=== PATIENT | female | born 1950 | race Caucasian/White ===

== ENCOUNTER 2020-11-18 16:18 | Observation (INO) ==
[2020-11-18] MEDS ORDERED: Ipratropium/Albuterol Neb 3 ML IH ONE (16:52)
[2020-11-18] MEDS ORDERED: methylPREDNISolone 125 MG/2 ML VIAL IVP ONE (16:52)
[2020-11-18 17:17] LABS: ABG Base Excess 3 mEq/L (-2 to 3); ABG HCO3 27 mEq/L (21-27); ABG Oxygen Saturation 97 % (95-98); ABG PCO2 39 mmHg (35-45); ABG PH 7.45 pH Units (7.32-7.45); ABG PO2 88 mmHg (85-104); ABG TCO2 28 mEq/L (20-26)
[2020-11-18 17:26] LABS: Basophils % 0.2 %; Eosinophils # 0.2 K/mcL (0.0-0.6); Eosinophils % 1.4 %; Hematocrit 37.7 % (35.3-44.9); Hemoglobin 12.2 g/dL (11.5-15.4); Immature Granulocytes % 0.4 % (0-4); Lymphocytes # 0.6 K/mcL (0.6-4.6); Lymphocytes % 3.7 %; Mean Corpuscular HGB Conc 32.4 g/dL (31.6-35.5); Mean Corpuscular Hemoglobin 28.5 pg (28.0-33.3); Mean Corpuscular Volume 88.1 fL (83.0-100.0); Monocytes # 1.2 K/mcL (0.0-1.3); Monocytes % 6.9 %; Neutrophils # 14.8 K/mcL (1.6-8.9); Platelet Count 175 K/mcL (140-400); Red Blood Count 4.28 M/mcL (3.82-4.97); Red Cell Distribution Width 14.6 % (11.5-14.5); Segmented Neutrophils % 87.4 %; White Blood Count 16.9 K/mcL (4.3-11.1)
[2020-11-18 17:53] LABS: Calcium 9.6 mg/dL (8.6-10.3); Potassium 3.7 mEq/L (3.5-5.1); Troponin I 0.04 ng/mL (< 0.04)
[2020-11-18] MEDS ORDERED: cefTRIAXone 1,000 MG in Water for inj. (sterile) 10 ML IVP ONE (18:00)
[2020-11-18] MEDS ORDERED: Azithromycin 250 MG TABLET PO ONE (18:00)
[2020-11-18 18:30] LABS: Bilirubin,Urine Negative (Negative); Blood,Urine Negative (Negative); Clarity,Urine Clear (Clear); Color,Urine Light-Yellow (Yellow); Glucose,Urine (UA) Normal (Normal); Ketones,Urine Negative (Negative); Leukocyte Esterase,Urine Negative (Negative); Nitrite,Urine Negative (Negative); Protein,Urine 100 mg/dL (Neg-Trace); RBC,Urine 0-3 per hpf (0-3); Specific Gravity,Urine 1.014 (1.010-1.025); Squamous Epithelial Cell,Urine Moderate per hpf (None-Few); Urobilinogen,Urine Normal (Normal); WBC,Urine 0-3 per hpf (0-3)
[2020-11-18] MEDS ORDERED: Acetaminophen 325 MG TABLET PO PRN (21:02)
[2020-11-18] MEDS ORDERED: Naloxone 0.4 MG/ML INJ IVP PRN ×2 (21:02→21:16)
[2020-11-18] MEDS ORDERED: Ondansetron ODT 4 MG TAB.RAPDIS SL PRN (21:02)
[2020-11-18] MEDS ORDERED: Dextrose Gel 15 GM/37.5 ML TUBE PO PRN ×2 (21:14)
[2020-11-18] MEDS ORDERED: *HR* Dextrose 50 % in Water (Vial) 50 ML VIAL IVP PRN (21:14)
[2020-11-18] MEDS ORDERED: D5% in Water 1,000 ML IVC PRN (21:14)
[2020-11-18] MEDS ORDERED: Insulin DETEMIR 100 UNIT/ML X5UNITS SUBQ SCH (21:15)
[2020-11-18] MEDS ORDERED: 0.9 % Sodium Chloride 1,000 ML IVC SCH (21:15)
[2020-11-18] MEDS ORDERED: Perflutren Lipid Microsphere 1.3 ML in 0.9 % Sodium Chloride 8.7 ML IVP PRN (21:16)
[2020-11-18] MEDS: Insulin LISPRO 300 UNITS/3 ML VIAL SUBQ SCH (21:55)
[2020-11-18] MEDS: Budesonide/Formoterol 160/4.5 1 PUFF INH IH SCH (22:29)
[2020-11-18] MEDS: Ipratropium/Albuterol Neb 3 ML IH SCH (22:29)
[2020-11-18] MEDS ORDERED: PrednisoLONE Oral Soln 15 MG/5 ML UDC PO SCH (22:30)
[2020-11-18] MEDS: predniSONE 20 MG TABLET PO SCH (22:35)
[2020-11-18 22:51] LABS: INR 4.5; Prothrombin Time 49.8 Seconds (9.4-12.1)
[2020-11-19 03:10] LABS: Basophils % 0.1 %; Hemoglobin 10.8 g/dL (11.5-15.4); Immature Granulocytes % 0.6 % (0-4); Lymphocytes # 0.7 K/mcL (0.6-4.6); Lymphocytes % 3.4 %; Mean Corpuscular HGB Conc 32.7 g/dL (31.6-35.5); Mean Corpuscular Hemoglobin 28.6 pg (28.0-33.3); Mean Corpuscular Volume 87.5 fL (83.0-100.0); Mean Platelet Volume 10.3 fL (9.4-12.4); Monocytes # 0.5 K/mcL (0.0-1.3); Monocytes % 2.5 %; Neutrophils # 18.7 K/mcL (1.6-8.9); Platelet Count 145 K/mcL (140-400); Red Blood Count 3.77 M/mcL (3.82-4.97); Red Cell Distribution Width 14.4 % (11.5-14.5); Segmented Neutrophils % 93.4 %; White Blood Count 20.1 K/mcL (4.3-11.1)
[2020-11-19 03:22] LABS: INR 5.2; Prothrombin Time 57.3 Seconds (9.4-12.1)
[2020-11-19 03:28] LABS: Calcium 8.8 mg/dL (8.6-10.3); Magnesium 1.9 mg/dL (1.6-2.6); Phosphorous 3.9 mg/dL (2.7-4.5); Potassium 3.9 mEq/L (3.5-5.1)
[2020-11-19] MEDS: Ipratropium/Albuterol Neb 3 ML IH SCH ×4 (04:08→21:46)
[2020-11-19] MEDS ORDERED: MethylPREDNISolone 40 MG/ML VIAL IVP SCH (06:00)
[2020-11-19] MEDS ORDERED: hydrALAZINE 25 MG TABLET PO SCH ×2 (09:00→21:00)
[2020-11-19] MEDS ORDERED: *HR* Warfarin 3 MG TABLET PO SCH (09:00)
[2020-11-19 09:14] LABS: Protein/Creatinine Ratio,Urine 4.14 mg/mg (0.00-0.20); Sodium, Urine 122.6 mEq/L
[2020-11-19] MEDS: predniSONE 20 MG TABLET PO SCH (09:31)
[2020-11-19] MEDS: Budesonide/Formoterol 160/4.5 1 PUFF INH IH SCH ×2 (09:33→21:46)
[2020-11-19] MEDS: Insulin LISPRO 300 UNITS/3 ML VIAL SUBQ SCH ×4 (09:45→20:26)
[2020-11-19] MEDS ORDERED: Piperacillin/Tazobactam 3.375 GM in 0.9 % Sodium Chloride Mini Bag 100 ML IVPB SCH ×2 (17:13→20:00)
[2020-11-19] MEDS ORDERED: cloNIDine HCL 0.1 MG TABLET PO ONE (17:20)
[2020-11-19] MEDS ORDERED: cefTRIAXone 2,000 MG in Water for inj. (sterile) 20 ML IVP SCH (18:00)
[2020-11-19] MEDS ORDERED: Azithromycin 500 MG in 0.9 % Sodium Chloride 250 ML IVPB SCH (18:00)
[2020-11-19] MEDS ORDERED: Warfarin perPT PO PRN (18:00)
[2020-11-19] MEDS: carvediloL 25 MG TABLET PO SCH (18:37)
[2020-11-19] MEDS ORDERED: *HR* Phytonadione 5 MG TABLET PO ONE (18:42)
[2020-11-19] MEDS: ALPRAZolam 1 MG TABLET PO SCH (20:25)
[2020-11-19] MEDS ORDERED: Insulin DETEMIR 100 UNIT/ML X5UNITS SUBQ SCH (21:00)
[2020-11-20] MEDS: Ipratropium/Albuterol Neb 3 ML IH SCH ×2 (04:04→10:03)
[2020-11-20 05:08] LABS: Basophils % 0.1 %; Hematocrit 33.6 % (35.3-44.9); Immature Granulocytes % 0.7 % (0-4); Lymphocytes # 0.7 K/mcL (0.6-4.6); Lymphocytes % 5.2 %; Mean Corpuscular HGB Conc 32.7 g/dL (31.6-35.5); Mean Corpuscular Hemoglobin 28.9 pg (28.0-33.3); Mean Corpuscular Volume 88.2 fL (83.0-100.0); Mean Platelet Volume 10.9 fL (9.4-12.4); Monocytes # 0.6 K/mcL (0.0-1.3); Monocytes % 4.5 %; Neutrophils # 12.1 K/mcL (1.6-8.9); Platelet Count 170 K/mcL (140-400); Red Blood Count 3.81 M/mcL (3.82-4.97); Red Cell Distribution Width 14.9 % (11.5-14.5); Segmented Neutrophils % 89.5 %; White Blood Count 13.5 K/mcL (4.3-11.1)
[2020-11-20 05:12] LABS: Estimated Average Glucose 157 mg/dl; Hemoglobin A1C 7.1 %
[2020-11-20 05:13] LABS: INR 3.3; Prothrombin Time 37.3 Seconds (9.4-12.1)
[2020-11-20 05:21] LABS: Potassium 4.2 mEq/L (3.5-5.1)
[2020-11-20 07:35] VITALS: BP 133/70; PULSE 116; TEMP 99.2
[2020-11-20] MEDS ORDERED: Piperacillin/Tazobactam 3.375 GM in 0.9 % Sodium Chloride Mini Bag 100 ML IVPB SCH (08:00)
[2020-11-20] MEDS: predniSONE 20 MG TABLET PO SCH (08:55)
[2020-11-20] MEDS: ALPRAZolam 1 MG TABLET PO SCH (08:56)
[2020-11-20] MEDS: carvediloL 25 MG TABLET PO SCH (08:56)
[2020-11-20] MEDS: Insulin LISPRO 300 UNITS/3 ML VIAL SUBQ SCH (08:58)
[2020-11-20] MEDS ORDERED: cloNIDine HCL 0.1 MG TABLET PO SCH (09:00)
[2020-11-20] MEDS ORDERED: hydrALAZINE 25 MG TABLET PO SCH (09:00)
[2020-11-20] MEDS: Budesonide/Formoterol 160/4.5 1 PUFF INH IH SCH (10:03)
[2020-11-20 10:07] VITALS: O2SAT 95
== END 2020-11-20 10:45 | disposition home or self-care (01) ==
LOC: EMEROOARM 16:18 → 2ANU 16:18
PROVIDERS: ADMIT Internal Medicine; ATTEND Internal Medicine

== ENCOUNTER 2021-04-16 11:34 | Inpatient (IN) ==
[2021-04-16 17:54] LABS: Basophils % 0.4 %; Eosinophils # 0.1 K/mcL (0.0-0.6); Eosinophils % 0.9 %; Hemoglobin 10.7 g/dL (11.5-15.4); Immature Granulocytes % 0.4 % (0-4); Lymphocytes % 12.4 %; Mean Corpuscular HGB Conc 30.6 g/dL (31.6-35.5); Mean Corpuscular Hemoglobin 26.8 pg (28.0-33.3); Mean Corpuscular Volume 87.5 fL (83.0-100.0); Mean Platelet Volume 9.7 fL (9.4-12.4); Monocytes # 0.6 K/mcL (0.0-1.3); Monocytes % 7.4 %; Neutrophils # 6.1 K/mcL (1.6-8.9); Platelet Count 184 K/mcL (140-400); Segmented Neutrophils % 78.5 %; White Blood Count 7.8 K/mcL (4.3-11.1)
[2021-04-16 18:12] LABS: Calcium 9.9 mg/dL (8.6-10.3); Potassium 5.2 mEq/L (3.5-5.1); Troponin I 0.03 ng/mL (< 0.04)
[2021-04-16] MEDS ORDERED: *HR* Metoprolol 5 MG/5 ML VIAL IVP ONE (18:23)
[2021-04-16] MEDS ORDERED: Furosemide 40 MG/4 ML VIAL IVP ONE (18:23)
[2021-04-16 19:47] LABS: Influenza A PCR Negative (Negative); Influenza B PCR Negative (Negative); Resp. Syncytial Virus PCR Negative (Negative); SARS-CoV-2 by PCR (In House) Negative (Negative)
[2021-04-16] MEDS ORDERED: Ondansetron 4 MG/2 ML VIAL IVP PRN (19:52)
[2021-04-16] MEDS ORDERED: Naloxone 0.4 MG/ML INJ IVP PRN (19:52)
[2021-04-16] MEDS ORDERED: Melatonin 3 MG TABLET PO PRN (19:52)
[2021-04-16] MEDS ORDERED: Acetaminophen 325 MG TABLET PO PRN (19:52)
[2021-04-16] MEDS ORDERED: *HR* Dextrose 50 % in Water (Syg) 50 ML SYRINGE IVP PRN (19:55)
[2021-04-16] MEDS ORDERED: D5% in Water 1,000 ML IVC PRN (19:55)
[2021-04-16] MEDS ORDERED: Dextrose Gel 15 GM/37.5 ML TUBE PO PRN ×2 (19:55)
[2021-04-16] MEDS: Insulin LISPRO 300 UNITS/3 ML VIAL SUBQ SCH (21:00)
[2021-04-16] MEDS ORDERED: Albuterol 2.5 MG/3 ML NEBULIZER IH PRN (21:05)
[2021-04-16] MEDS: ALPRAZolam 1 MG TABLET PO PRN (21:45)
[2021-04-16] MEDS: Furosemide 40 MG/4 ML VIAL IVP SCH (23:30)
[2021-04-17 01:02] LABS: Hematocrit 33.6 % (35.3-44.9); Mean Corpuscular HGB Conc 29.8 g/dL (31.6-35.5); Mean Corpuscular Hemoglobin 26.4 pg (28.0-33.3); Mean Corpuscular Volume 88.7 fL (83.0-100.0); Mean Platelet Volume 10.1 fL (9.4-12.4); Platelet Count 162 K/mcL (140-400); Red Blood Count 3.79 M/mcL (3.82-4.97); Red Cell Distribution Width 17.2 % (11.5-14.5); White Blood Count 6.5 K/mcL (4.3-11.1)
[2021-04-17 01:14] LABS: INR 8.7; Prothrombin Time 95.7 Seconds (9.4-12.1)
[2021-04-17] MEDS ORDERED: carvediloL 25 MG TABLET PO ONE ×3 (01:20→13:45)
[2021-04-17 01:23] LABS: Albumin 3.8 g/dL (3.5-5.7); Albumin/Globulin Ratio 1.1 (1.1-2.2); Bilirubin,Total 0.8 mg/dL (0.3-1.0); Calcium 9.5 mg/dL (8.6-10.3); Globulin 3.5 g/dL (2.4-3.5); Magnesium 2.2 mg/dL (1.6-2.6); Phosphorous 4.1 mg/dL (2.7-4.5); Potassium 4.9 mEq/L (3.5-5.1); Total Protein 7.3 g/dL (6.4-8.9)
[2021-04-17 01:38] LABS: Bilirubin,Urine Negative (Negative); Blood,Urine Negative (Negative); Clarity,Urine Clear (Clear); Color,Urine Light-Yellow (Yellow); Glucose,Urine (UA) Normal (Normal); Ketones,Urine Negative (Negative); Leukocyte Esterase,Urine Negative (Negative); Nitrite,Urine Negative (Negative); PH,Urine 5.5 pH Units (5.0-8.0); Protein,Urine Trace mg/dL (Neg-Trace); Specific Gravity,Urine 1.012 (1.010-1.025); Urobilinogen,Urine Normal (Normal)
[2021-04-17 01:49] LABS: Sodium, Urine 95.8 mEq/L
[2021-04-17] MEDS ORDERED: *HR* Metoprolol 5 MG/5 ML VIAL IVP ONE (04:13)
[2021-04-17] MEDS: Levalbuterol Neb 1.25 MG/3 ML IH SCH ×4 (04:26→20:22)
[2021-04-17] MEDS: Insulin LISPRO 300 UNITS/3 ML VIAL SUBQ SCH ×3 (09:53→17:31)
[2021-04-17] MEDS: Furosemide 40 MG/4 ML VIAL IVP SCH (09:55)
[2021-04-17] MEDS: Albumin 25% 25gram/100mL 25 GM/100 ML IV.SOLN IVPB SCH ×2 (10:14→17:55)
[2021-04-17 15:40] LABS: Complement C3 91 mg/dL (87-200)
[2021-04-17] MEDS: DilTIAZem SR (12hr) 60 MG CAP.ER.12H PO SCH (18:50)
[2021-04-17] MEDS: ALPRAZolam 1 MG TABLET PO PRN (20:14)
[2021-04-18] MEDS: carvediloL 25 MG TABLET PO SCH ×3 (00:47→16:45)
[2021-04-18] MEDS: Insulin LISPRO 300 UNITS/3 ML VIAL SUBQ SCH ×5 (00:47→20:48)
[2021-04-18] MEDS: Albumin 25% 25gram/100mL 25 GM/100 ML IV.SOLN IVPB SCH ×3 (01:47→16:45)
[2021-04-18 03:48] LABS: Basophils % 0.3 %; Eosinophils % 0.5 %; Hematocrit 30.6 % (35.3-44.9); Hemoglobin 9.3 g/dL (11.5-15.4); Immature Granulocytes % 0.6 % (0-4); Lymphocytes # 0.8 K/mcL (0.6-4.6); Lymphocytes % 12.2 %; Mean Corpuscular HGB Conc 30.4 g/dL (31.6-35.5); Mean Corpuscular Hemoglobin 26.8 pg (28.0-33.3); Mean Corpuscular Volume 88.2 fL (83.0-100.0); Mean Platelet Volume 10.1 fL (9.4-12.4); Monocytes # 0.5 K/mcL (0.0-1.3); Monocytes % 8.1 %; Platelet Count 148 K/mcL (140-400); Red Blood Count 3.47 M/mcL (3.82-4.97); Red Cell Distribution Width 17.2 % (11.5-14.5); Segmented Neutrophils % 78.3 %; White Blood Count 6.4 K/mcL (4.3-11.1)
[2021-04-18 04:04] LABS: Calcium 9.7 mg/dL (8.6-10.3); Potassium 5.1 mEq/L (3.5-5.1)
[2021-04-18] MEDS: Levalbuterol Neb 1.25 MG/3 ML IH SCH ×2 (04:04→07:46)
[2021-04-18] MEDS: hydrALAZINE 25 MG TABLET PO SCH (10:28)
[2021-04-18] MEDS: ALPRAZolam 1 MG TABLET PO SCH ×3 (10:28→20:48)
[2021-04-18] MEDS: cloNIDine HCL 0.1 MG TABLET PO SCH ×3 (10:28→20:47)
[2021-04-18] MEDS: Aspirin Enteric Coated 81 MG Tablet PO SCH (10:29)
[2021-04-18] MEDS: Furosemide 40 MG/4 ML VIAL IVP SCH (10:30)
[2021-04-18 10:31] LABS: Lactate Dehydrogenase 136 Units/L (140-271); Total Protein 7.1 g/dL (6.4-8.9)
[2021-04-18 10:39] LABS: Prothrombin Time 115.9 Seconds (9.4-12.1)
[2021-04-18 10:40] LABS: INR 10.6
[2021-04-18] MEDS ORDERED: *HR* Phytonadione 5 MG TABLET PO ONE (10:41)
[2021-04-18] MEDS: Budesonide/Formoterol 80/4.5 1 PUFF INH IH SCH ×2 (15:03→20:39)
[2021-04-18] MEDS ORDERED: Levalbuterol Neb 1.25 MG/3 ML IH PRN (15:08)
[2021-04-18] MEDS: DilTIAZem SR (12hr) 60 MG CAP.ER.12H PO SCH (20:47)
[2021-04-18] MEDS ORDERED: hydrALAZINE 25 MG TABLET PO SCH (21:00)
[2021-04-18] MEDS ORDERED: 0.9 % Sodium Chloride 500 ML IVC ONE (21:23)
[2021-04-19] MEDS: Albumin 25% 25gram/100mL 25 GM/100 ML IV.SOLN IVPB SCH (00:35)
[2021-04-19 06:55] VITALS: TEMP 97.4; O2SAT 100
[2021-04-19] MEDS: carvediloL 25 MG TABLET PO SCH (08:04)
[2021-04-19] MEDS: hydrALAZINE 25 MG TABLET PO SCH (08:04)
[2021-04-19] MEDS: ALPRAZolam 1 MG TABLET PO SCH (08:04)
[2021-04-19] MEDS: cloNIDine HCL 0.1 MG TABLET PO SCH (08:04)
[2021-04-19] MEDS: Budesonide/Formoterol 80/4.5 1 PUFF INH IH SCH (08:09)
[2021-04-19 08:15] LABS: Hemoglobin 9.7 g/dL (11.5-15.4); Mean Platelet Volume 10.5 fL (9.4-12.4); Red Cell Distribution Width 17.4 % (11.5-14.5)
[2021-04-19 08:16] LABS: Hematocrit 32.7 % (35.3-44.9); Immature Granulocytes % 0.6 % (0-4); Lymphocytes # 0.6 K/mcL (0.6-4.6); Lymphocytes % 7.4 %; Mean Corpuscular HGB Conc 29.7 g/dL (31.6-35.5); Mean Corpuscular Hemoglobin 26.8 pg (28.0-33.3); Mean Corpuscular Volume 90.3 fL (83.0-100.0); Monocytes # 0.8 K/mcL (0.0-1.3); Monocytes % 9.2 %; Neutrophils # 6.8 K/mcL (1.6-8.9); Platelet Count 163 K/mcL (140-400); Red Blood Count 3.62 M/mcL (3.82-4.97); Segmented Neutrophils % 82.8 %; White Blood Count 8.2 K/mcL (4.3-11.1)
[2021-04-19 08:22] LABS: INR 3.6; Prothrombin Time 39.3 Seconds (9.4-12.1)
[2021-04-19 08:34] LABS: Calcium 9.3 mg/dL (8.6-10.3); Potassium 5.3 mEq/L (3.5-5.1)
[2021-04-19] MEDS: Aspirin Enteric Coated 81 MG Tablet PO SCH (08:37)
[2021-04-19] MEDS: Insulin LISPRO 300 UNITS/3 ML VIAL SUBQ SCH ×2 (08:37→12:44)
[2021-04-19 11:38] VITALS: BP 92/57; PULSE 106
[2021-04-19] MEDS ORDERED: Sodium Bicarbonate 150 MEQ in D5% in Water 1,000 ML IVC SCH (12:30)
[2021-04-19] MEDS ORDERED: 0.9 % Sodium Chloride 1,000 ML ONE (14:56)
[2021-04-19] MEDS ORDERED: *HR* EPINEPHrine 1 MG/10 ML SYRINGE IVP ONE (15:05)
[2021-04-19] MEDS ORDERED: *HR* Atropine Sulfate 1 MG/10 ML SYRINGE IV ONE (15:05)
== END 2021-04-19 15:06 | disposition expired | DRG 291 ==
LOC: EMEROOARM 11:34 → 3BNU 11:34 → SUATTDRO 19:39 → 3BNU 20:03 → SUATTDRO 22:49
PROVIDERS: ADMIT Internal Medicine; ATTEND Internal Medicine